=== PATIENT | female | born 1950 | race Caucasian/White ===

== ENCOUNTER 2018-05-01 18:13 | Emergency (ER) | payer OTHER ==
[2018-05-01] MEDS ORDERED: NA CHLORIDE 0.9% 1,000 ML ONE (20:00)
[2018-05-01] MEDS ORDERED: DIPHENHYDRAMINE 50 MG/ML VIAL ONE (20:00)
--- NOTE | 2018-05-01 20:42 | ER ---
Nurse's Notes [facility] Name: Kaylee Urias Age: 67 yrs Sex: Female : 1950 Arrival Date: 05/01/2018 Time: 18:16 Bed 28 Private MD: Edin Baker B Diagnosis: ALLERGIC REACTION TO NATUROPATHIC MEDICATION Presentation: 05/01 18:17 Presenting complaint: Patient states: i have endometrial cancer and been getting sub q hj shots of Helixor Viscosan and today im supposed to get 0.1 dose and mistakenly i got 1.0, now i have tingling and numbness, lips and tongue; denies SOB; denies headache, denies racing heart rate; administered meds 30 mins [employer];. Transition of care: patient was not received from another setting of care. Onset: The symptoms/episode began/occurred acutely. Anaphylaxis evaluation, no signs or symptoms of anaphylaxis were noted. Onset of symptoms was May 01, 2018. Risk Assessment: Do you want to hurt yourself or someone else? Patient reports no desire to harm self or others. Initial Sepsis Screen: Does the patient meet any 2 criteria? No. Patient's initial sepsis screen is negative. Does the patient have a suspected source of infection? No. Patient's initial sepsis screen is negative. Care prior to arrival: None. 18:17 Method Of Arrival: Ambulatory 18:17 Acuity: RITCHIE 3 hj Triage Assessment: 18:24 General: Appears in no apparent distress. uncomfortable, Behavior is calm, cooperative, hj appropriate for age. Pain: Denies pain. Historical: - Allergies: 18:24 [place] And Derivatives; hj 18:24 cranberry; hj 18:24 dairy products; hj 18:24 Gluten Protein; hj 18:24 Mustard; hj 18:24 Nuts; hj - Home Meds: 18:24 holixar viscosan [Active]; hj - PMHx: 18:24 celiac; hj - PSHx: 18:24 Tonsillectomy; hj - Immunization history:: Adult Immunizations up to date. - Social history:: Smoking status: Patient/guardian denies using tobacco, Patient/guardian denies using alcohol. - Ebola Screening: : Patient negative for fever greater than or equal to 101.5 degrees Fahrenheit, and additional compatible Ebola Virus Disease symptoms Patient denies exposure to infectious person Patient denies travel to an Ebola-affected area in the 21 days before illness onset. - Family history:: not pertinent. - Hospitalizations: : No recent hospitalization is reported. - History obtained from: friend. Screenin:24 Abuse screen: Denies threats or abuse. Denies injuries from another. Nutritional hj screening: No deficits noted. Tuberculosis screening: No symptoms or risk factors identified. Fall Risk None identified. Assessment: 18:24 Respiratory: Airway is patent Respiratory effort is even, unlabored, Respiratory hj pattern is regular, symmetrical, Breath sounds are clear. 19:37 General: Appears in no apparent distress. comfortable, slender, well groomed, well tl3 developed, well nourished, Behavior is calm, cooperative, appropriate for age. General: pt reports that she felt like she was having an allergic reaction to an injection that her gave her. It is prescribed by her oncologist in [place], it is [place], she is supposed to get 0.01 ml and instead got 0 .1 m IM . Pain: Denies pain. Neuro: Level of Consciousness is awake, alert, obeys commands, Oriented to person, place, time, situation, Appropriate for age. Cardiovascular: Heart tones S1 S2 present Patient's skin is warm and dry. Respiratory: Airway is patent Respiratory effort is even, unlabored, Respiratory pattern is regular, symmetrical, Breath sounds are clear bilaterally. GI: No signs and/or symptoms were reported involving the gastrointestinal system. : No signs and/or symptoms were reported regarding the genitourinary system. EENT: No signs and/or symptoms were reported regarding the EENT system. Derm: No signs and/or symptoms reported regarding the dermatologic system. Musculoskeletal: No signs and/or symptoms reported regarding the musculoskeletal system. 20:27 Reassessment: No changes from previously documented assessment. Patient and/or family tl3 updated on plan of care and expected duration. Pain level reassessed. Patient is alert, oriented x 3, equal unlabored respirations, skin warm/dry/pink. 21:18 Reassessment: Patient appears in no apparent distress at this time. No changes from tl3 previously documented assessment. Patient and/or family updated on plan of care and expected duration. Pain level reassessed. Patient is alert, oriented x 3, equal unlabored respirations, skin warm/dry/pink. Vital Signs: 18:25 BP 146 / 78; Pulse 80; Resp 18; Temp 98.5(TE); Pulse Ox 100% on R/A; Weight 49.9 kg; hj Height 5 ft. 5 in. (165.10 cm); Pain 0/10; 19:37 BP 140 / 74; Pulse 80; Resp 18; Pulse Ox 100% ; tl3 20:27 BP 152 / 74; Pulse 69; Resp 18; Pulse Ox 100% on R/A; tl3 21:18 BP 147 / 67; Pulse 65; Resp 18; Pulse Ox 100% ; tl3 18:25 Body Mass Index 18.31 (49.90 kg, 165.10 cm) hj ED Course: 18:16 Patient arrived in ED. do 18:16 Edin Baker MD is Private Physician. do 18:23 Triage completed. hj 18:24 Arm band placed on right wrist. hj 18:25 Patient has correct armband on for positive identification. Placed in gown. Bed in low hj position. Call light in reach. Side rails up X 1. 18:50 Kaylee Cody FNP is PHCP. kav 18:50 Harpal Duarte MD is Attending Physician. kav 19:15 Adilene John, TIP is Primary Nurse. tl3 19:20 No provider procedures requiring assistance completed. Patient did not have IV access tl3 during this emergency room visit. 20:00 Inserted saline lock: 20 gauge in left antecubital area, using aseptic technique. tl3 20:41 Edin Baker MD is Referral Physician. kav 21:18 IV discontinued, intact, bleeding controlled, No redness/swelling at site. Pressure tl3 dressing applied. Administered Medications: 20:25 Drug: Pepcid 20 mg Route: IVP; Infused Over: 3 mins; Site: left antecubital; tl3 20:27 Follow up: Response: No adverse reaction tl3 20:25 Drug: Benadryl 25 mg Route: IVP; Infused Over: 3 mins; Site: left antecubital; tl3 20:27 Follow up: Response: No adverse reaction tl3 20:26 Drug: NS 0.9% 1000 ml Route: IV; Rate: 1 bolus; Site: left antecubital; Delivery: tl3 Primary tubing; 21:21 Follow up: IV Status: Completed infusion; IV Intake: 1000ml tl3 Intake: 21:21 IV: 1000ml; Total: 1000ml. tl3 Outcome: 20:42 Discharge ordered by MD. merchant 21:18 Discharged to home ambulatory. tl3 21:18 Condition: stable 21:18 Discharge instructions given to patient, Instructed on discharge instructions, follow up and referral plans. Demonstrated understanding of instructions, follow-up care. 21:21 Patient left the ED. tl3 Signatures: Kaylee Cody FNP FNP kav Joaquin, Henry RN RN Naida Wills Tammy, RN RN tl3 Corrections: (The following items were deleted from the chart) 18:27 18:25 Pulse 80bpm; Resp 18bpm; Pulse Ox 100% RA; Temp 98.5F Temporal; 49.9 kg; Height 5 hj ft. 5 in.; BMI: 18.3; Pain 0/10; hj
--- NOTE | 2018-05-01 20:42 | EDPHYS ---
Physician Documentation [facility] Name: Kaylee Urias Age: 67 yrs Sex: Female : 1950 Arrival Date: 05/01/2018 Time: 18:16 Bed 28 Private MD: Edin Baker B ED Physician Harpal Duarte HPI: 05/01 19:30 This 67 yrs old Female presents to ER via Ambulatory with complaints of kav Allergic Reaction. 19:30 The patient presents with itching. Onset: The symptoms/episode began/occurred acutely, kav just prior to arrival. 19:30 Associated signs and symptoms: Pertinent positives: The patient has no apparent kav associated signs or symptoms. headache, Pertinent negatives: Altered mental status fever. Possible causes: Naturopathic Mistletoe injection. 19:33 At home the patient or guardian has treated the symptoms with nothing. Severity of kav symptoms: At their worst the symptoms were mild just prior to arrival. The patient has not experienced similar symptoms in the past. The patient has been recently seen by a physician: naturopathic oncologist. patient reports pmhx: endometrial cancer. she has completed radiation for the endometrial cancer. she was recently seen by her naturopathic oncologist who recommended abdominal mistletoe injections. her friend, who has been assisting with the injections, reports that he accidently injection 1 mg instead of recommended dose of 0.1 mg. patient reports that her lips were tingling and itching but that the "...symptoms have begun to subside". there is no erythema at injection site area.. Historical: - Allergies: 18:24 [place] And Derivatives; hj 18:24 cranberry; hj 18:24 dairy products; hj 18:24 Gluten Protein; hj 18:24 Mustard; hj 18:24 Nuts; hj - Home Meds: 18:24 holixar viscosan [Active]; hj - PMHx: 18:24 celiac; hj - PSHx: 18:24 Tonsillectomy; hj - Immunization history:: Adult Immunizations up to date. - Social history:: Smoking status: Patient/guardian denies using tobacco, Patient/guardian denies using alcohol. - Ebola Screening: : Patient negative for fever greater than or equal to 101.5 degrees Fahrenheit, and additional compatible Ebola Virus Disease symptoms Patient denies exposure to infectious person Patient denies travel to an Ebola-affected area in the 21 days before illness onset. - Family history:: not pertinent. - Hospitalizations: : No recent hospitalization is reported. - History obtained from: friend. ROS: 19:40 Constitutional: Negative for fever, chills, and weight loss, Eyes: Negative for injury, kav pain, redness, and discharge, ENT: Negative for injury, pain, and discharge, Neck: Negative for injury, pain, and swelling, Cardiovascular: Negative for chest pain, palpitations, and edema, Respiratory: Negative for shortness of breath, cough, wheezing, and pleuritic chest pain, Abdomen/GI: Negative for abdominal pain, nausea, vomiting, diarrhea, and constipation, Back: Negative for injury and pain, : Negative for injury, bleeding, discharge, and swelling, MS/Extremity: Negative for injury and deformity, Neuro: Negative for headache, weakness, numbness, tingling, and seizure, Psych: Negative for depression, anxiety, suicide ideation, homicidal ideation, and hallucinations, Allergy/Immunology: Negative for hives, rash, and allergies, Endocrine: Negative for neck swelling, polydipsia, polyuria, polyphagia, and marked weight changes, Hematologic/Lymphatic: Negative for swollen nodes, abnormal bleeding, and unusual bruising. 19:40 Skin: Negative for swelling, acute changes. Exam: 19:40 Constitutional: This is a well developed, well nourished patient who is awake, alert, kav and in no acute distress. Head/Face: Normocephalic, atraumatic. Eyes: Pupils equal round and reactive to light, extra-ocular motions intact. Lids and lashes normal. Conjunctiva and sclera are non-icteric and not injected. Cornea within normal limits. Periorbital areas with no swelling, redness, or edema. ENT: Nares patent. No nasal discharge, no septal abnormalities noted. Tympanic membranes are normal and external auditory canals are clear. Oropharynx with no redness, swelling, or masses, exudates, or evidence of obstruction, uvula midline. Mucous membranes moist. Neck: Trachea midline, no thyromegaly or masses palpated, and no cervical lymphadenopathy. Supple, full range of motion without nuchal rigidity, or vertebral point tenderness. No Meningismus. Chest/axilla: Normal chest wall appearance and motion. Nontender with no deformity. No lesions are appreciated. Cardiovascular: Regular rate and rhythm with a normal S1 and S2. No gallops, murmurs, or rubs. Normal PMI, no JVD. No pulse deficits. Respiratory: Lungs have equal breath sounds bilaterally, clear to auscultation and percussion. No rales, rhonchi or wheezes noted. No increased work of breathing, no retractions or nasal flaring. Abdomen/GI: Soft, non-tender, with normal bowel sounds. No distension or tympany. No guarding or rebound. No evidence of tenderness throughout. Back: No spinal tenderness. No costovertebral tenderness. Full range of motion. Skin: Warm, dry with normal turgor. Normal color with no rashes, no lesions, and no evidence of cellulitis. MS/ Extremity: Pulses equal, no cyanosis. Neurovascular intact. Full, normal range of motion. Neuro: Awake and alert, GCS 15, oriented to person, place, time, and situation. Cranial nerves II-XII grossly intact. Motor strength 5/5 in all extremities. Sensory grossly intact. Cerebellar exam normal. Normal gait. Psych: Awake, alert, with orientation to person, place and time. Behavior, mood, and affect are within normal limits. Vital Signs: 18:25 BP 146 / 78; Pulse 80; Resp 18; Temp 98.5(TE); Pulse Ox 100% on R/A; Weight 49.9 kg; hj Height 5 ft. 5 in. (165.10 cm); Pain 0/10; 19:37 BP 140 / 74; Pulse 80; Resp 18; Pulse Ox 100% ; tl3 20:27 BP 152 / 74; Pulse 69; Resp 18; Pulse Ox 100% on R/A; tl3 21:18 BP 147 / 67; Pulse 65; Resp 18; Pulse Ox 100% ; tl3 18:25 Body Mass Index 18.31 (49.90 kg, 165.10 cm) hj MDM: 18:50 Medical screening is not applicable. kav 19:40 Data reviewed: vital signs, nurses notes. kav Administered Medications: 20:25 Drug: Pepcid 20 mg Route: IVP; Infused Over: 3 mins; Site: left antecubital; tl3 20:27 Follow up: Response: No adverse reaction tl3 20:25 Drug: Benadryl 25 mg Route: IVP; Infused Over: 3 mins; Site: left antecubital; tl3 20:27 Follow up: Response: No adverse reaction tl3 20:26 Drug: NS 0.9% 1000 ml Route: IV; Rate: 1 bolus; Site: left antecubital; Delivery: tl3 Primary tubing; 21:21 Follow up: IV Status: Completed infusion; IV Intake: 1000ml tl3 Disposition: 05/02 07:10 Co-signature as Attending Physician, Harpal Duarte MD. rn Disposition: 05/01/18 20:42 Discharged to Home. Impression: ALLERGIC REACTION TO NATUROPATHIC MEDICATION. - Condition is Stable. - Discharge Instructions: Drug Allergy, [id number]. - Medication Reconciliation Form, Thank You Letter form. - Follow up: Edin Baker MD; When: 5 - 6 days; Reason: Recheck today's complaints, Continuance of care, Re-evaluation by your physician. - Problem is new. - Symptoms have improved. Signatures: Kaylee Cody, COMMISSIONED SALES ASSOCIATE COMMISSIONED SALES ASSOCIATE Harpal Alicia MD MD rn Joaquin, Henry, RN RN hj Lowrey, Tammy, RN RN tl3 Corrections: (The following items were deleted from the chart) 05/01 21:21 20:42 05/01/2018 20:42 Discharged to Home. Impression: ALLERGIC REACTION TO tl3 NATUROPATHIC MEDICATION. Condition is Stable. Forms are Medication Reconciliation Form, Thank You Letter, Antibiotic Education, Prescription Opioid Use. Follow up: Edin Baker; When: 5 - 6 days; Reason: Recheck today's complaints, Continuance of care, Re-evaluation by your physician. Problem is new. Symptoms have improved. shonda
== END 2018-05-01 21:21 | disposition home or self-care (01) ==
LOC: ER 18:13
DX: L29.8 Other pruritus (principal); Z88.8 Allergy status to other drugs, medicaments and biological substances; Z91.011 Allergy to milk products; Z91.018 Allergy to other foods
CPT/HCPCS: 96361; 96374; 96375; 99283; J7030

== ENCOUNTER 2019-02-09 05:53 | Emergency (ER) | payer OTHER ==
[2019-02-09] MEDS ORDERED: HYDROCODONE/APAP 10/325 TAB ONE (06:48)
--- NOTE | 2019-02-09 08:12 | ER ---
Nurse's Notes [facility] Name: Kaylee Urias Age: 68 yrs Sex: Female : 1950 Arrival Date: 02/09/2019 Time: 05:54 Bed 8 Private MD: Diagnosis: Pain in right wrist;Pain in right elbow;Pain in right shoulder Presentation: 02/09 06:14 Presenting complaint: Patient states: right wrist pain s/p fall from sitting yesterday. ak1 Transition of care: patient was not received from another setting of care. Onset of symptoms was February 08, 2019. Risk Assessment: Do you want to hurt yourself or someone else? Patient reports no desire to harm self or others. Initial Sepsis Screen: Does the patient meet any 2 criteria? No. Patient's initial sepsis screen is negative. Does the patient have a suspected source of infection? No. Patient's initial sepsis screen is negative. Care prior to arrival: None. 06:14 Method Of Arrival: Wheelchair ak1 06:14 Acuity: RITCHIE 4 ak1 Triage Assessment: 06:19 General: Appears uncomfortable, Behavior is calm, cooperative. Pain: Complains of pain ak1 in right wrist. EENT: No signs and/or symptoms were reported regarding the EENT system. Neuro: No deficits noted. Cardiovascular: No deficits noted. Respiratory: No deficits noted. GI: No signs and/or symptoms were reported involving the gastrointestinal system. : No signs and/or symptoms were reported regarding the genitourinary system. Derm: No signs and/or symptoms reported regarding the dermatologic system. 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 Historical: - Allergies: 06:19 [place] And Derivatives; ak1 06:19 Nuts; ak1 06:19 Mustard; ak1 06:19 Gluten Protein; ak1 06:19 dairy products; ak1 06:19 cranberry; ak1 06:19 Sulfa (Sulfonamide Antibiotics); ak1 - Home Meds: 06:19 None [Active]; ak1 - PMHx: 06:19 celiac; ovarian cancer; tumor on spine; ak1 - PSHx: 06:19 Hysterectomy; ak1 - Immunization history:: Adult Immunizations unknown. - Social history:: Smoking status: Patient/guardian denies using tobacco. - Ebola Screening: : No symptoms or risks identified at this time. Screenin:22 Abuse screen: Denies threats or abuse. Denies injuries from another. Nutritional ak1 screening: No deficits noted. Tuberculosis screening: No symptoms or risk factors identified. Fall Risk Gait- Impaired (20 pts.). Assessment: 06:23 Reassessment: see triage assessment. ak1 06:46 Reassessment: ice applied to pt right wrist. bb 07:00 Reassessment: pt requesting pain medication for muscle spasm in right leg, ERP ak1 notified. no new order given. 07:48 Reassessment: Patient appears in no apparent distress at this time. Patient and/or ph family updated on plan of care and expected duration. Pain level reassessed. Patient is alert, oriented x 3, equal unlabored respirations, skin warm/dry/pink. Pt resting quietly, awaiting radiology results. 08:35 Reassessment: Patient appears in no apparent distress at this time. Patient and/or ph family updated on plan of care and expected duration. Pain level reassessed. Patient is alert, oriented x 3, equal unlabored respirations, skin warm/dry/pink. splint and sling placed to R arm, pt to be d/c home, waiting for to return. Vital Signs: 06:19 BP 173 / 88; Pulse 75; Resp 18; Temp 98.2; Pulse Ox 100% on R/A; Weight 47.63 kg (R); ak1 Height 5 ft. 5 in. (165.10 cm) (R); Pain 8/10; 08:36 BP 158 / 76; Pulse 70; Resp 22; Temp 98.0; Pulse Ox 100% on R/A; Pain 5/10; ph 06:19 Body Mass Index 17.47 (47.63 kg, 165.10 cm) ak1 ED Course: 05:54 Patient arrived in ED. ds1 06:03 Dayday Real NP is PHCP. pm1 06:03 Genaro Galindo MD is Attending Physician. pm1 06:08 Nelida Velásquez, RN is Primary Nurse. ak1 06:18 Triage completed. ak1 06:19 Arm band placed on Patient placed in an exam room, on a stretcher, on pulse oximetry, ak1 Patient notified of wait time. 06:22 Patient has correct armband on for positive identification. Bed in low position. Call ak1 light in reach. Side rails up X 1. Adult w/ patient. Pulse ox on. NIBP on. 07:07 X-ray completed. Portable x-ray completed in exam room. Patient tolerated procedure kw poorly. 07:09 Hand Right 3 View XRAY In Process Unspecified. EDMS 07:09 Elbow Right 3 View XRAY In Process Unspecified. EDMS 07:09 Shoulder Right (2 View) XRAY In Process Unspecified. EDMS 07:49 No provider procedures requiring assistance completed. ph 08:11 Jone Joseph MD is Referral Physician. pm1 08:37 Patient did not have IV access during this emergency room visit. ph Administered Medications: 06:45 Drug: [place] 10 mg-325 mg 1 tabs Route: PO; bb 08:38 Follow up: Response: No adverse reaction ph Outcome: 08:12 Discharge ordered by MD. pm1 09:37 Patient left the ED. ph Signatures: Dispatcher [employer] [facility] Katherin Mccurdy ds1 Tequila Lozada, RN RN bb Soniya Montero Amber, RN RN ak1 Mayda Muñoz RN RN ph Dayday Real, BRE TIRE BUSTER pm1
--- NOTE | 2019-02-09 08:13 | EDPHYS ---
Physician Documentation [facility] Name: Kaylee Urias Age: 68 yrs Sex: Female : 1950 Arrival Date: 02/09/2019 Time: 05:54 Bed 8 Private MD: ED Physician Genaro Galindo HPI: 02/09 06:55 This 68 yrs old Female presents to ER via Wheelchair with complaints of R Arm pm1 Pain. 06:55 The patient or guardian complains of pain, that is acute. The complaints affect the pm1 right arm. Context: The problem was sustained at home, resulted from a fall, from a seated position. Onset: The symptoms/episode began/occurred yesterday. Treatment prior to arrival includes: no previous treatment. Modifying factors: The symptoms are alleviated by remaining still, the symptoms are aggravated by movement. Associated signs and symptoms: Pertinent negatives: deformity, fever, headache, head injury, neck pain, LOC. Severity of symptoms: in the emergency department the symptoms are unchanged. The patient has not experienced similar symptoms in the past. Patient fell from chair while trying to get up and believes she landed with right arm out to brace fall. Did not hit her head. 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 - Social history:: Smoking status: Patient/guardian denies using tobacco. - Ebola Screening: : No symptoms or risks identified at this time. ROS: 06:55 Constitutional: Negative for fever, chills, and weight loss, Eyes: Negative for injury, pm1 pain, redness, and discharge, ENT: Negative for injury, pain, and discharge, Neck: Negative for injury, pain, and swelling, Cardiovascular: Negative for chest pain, palpitations, and edema, Respiratory: Negative for shortness of breath, cough, wheezing, and pleuritic chest pain, Abdomen/GI: Negative for abdominal pain, nausea, vomiting, diarrhea, and constipation, Back: Negative for injury and pain, : Negative for injury, bleeding, discharge, and swelling. 06:55 Skin: Negative for injury, rash, and discoloration, Neuro: Negative for headache, weakness, numbness, tingling, and seizure. 06:55 MS/extremity: Positive for pain, of the right arm, Negative for deformity. Exam: 06:55 Constitutional: This is a well developed, well nourished patient who is awake, alert, pm1 and in no acute distress. Head/Face: Normocephalic, atraumatic. Eyes: Pupils equal round and reactive to light, extra-ocular motions intact. Lids and lashes normal. Conjunctiva and sclera are non-icteric and not injected. Cornea within normal limits. Periorbital areas with no swelling, redness, or edema. ENT: Nares patent. No nasal discharge, no septal abnormalities noted. Tympanic membranes are normal and external auditory canals are clear. Oropharynx with no redness, swelling, or masses, exudates, or evidence of obstruction, uvula midline. Mucous membranes moist. Neck: Trachea midline, no thyromegaly or masses palpated, and no cervical lymphadenopathy. Supple, full range of motion without nuchal rigidity, or vertebral point tenderness. No Meningismus. Chest/axilla: Normal chest wall appearance and motion. Nontender with no deformity. No lesions are appreciated. Cardiovascular: Regular rate and rhythm with a normal S1 and S2. No gallops, murmurs, or rubs. Normal PMI, no JVD. No pulse deficits. Respiratory: Lungs have equal breath sounds bilaterally, clear to auscultation and percussion. No rales, rhonchi or wheezes noted. No increased work of breathing, no retractions or nasal flaring. Abdomen/GI: Soft, non-tender, with normal bowel sounds. No distension or tympany. No guarding or rebound. No evidence of tenderness throughout. Back: No spinal tenderness. No costovertebral tenderness. Full range of motion. Skin: Warm, dry with normal turgor. Normal color with no rashes, no lesions, and no evidence of cellulitis. 06:55 Musculoskeletal/extremity: Extremities: grossly normal except: noted in the anterior aspect of right shoulder, right antecubital area and right wrist: tenderness. 06:55 Neuro: Orientation: is normal, Motor: moves all fours, Sensation: is normal, no obvious gross deficits. Vital Signs: 06:19 BP 173 / 88; Pulse 75; Resp 18; Temp 98.2; Pulse Ox 100% on R/A; Weight 47.63 kg (R); ak1 Height 5 ft. 5 in. (165.10 cm) (R); Pain 8/10; 08:36 BP 158 / 76; Pulse 70; Resp 22; Temp 98.0; Pulse Ox 100% on R/A; Pain 5/10; ph 06:19 Body Mass Index 17.47 (47.63 kg, 165.10 cm) ak1 Procedures: 08:50 Splinting: Splint applied to right wrist using Orthoglass splint, applied by tech. pm1 Examined by me, post splint application: neurovascular intact, 2+ distal pulses palpable, brisk capillary refill noted, Patient tolerated well. MDM: 06:21 Patient medically screened. pm1 07:00 Data reviewed: vital signs. Data interpreted: Pulse oximetry: on room air is 100 %. pm1 Interpretation: normal. 08:10 Counseling: I had a detailed discussion with the patient and/or guardian regarding: the pm1 historical points, exam findings, and any diagnostic results supporting the discharge/admit diagnosis, radiology results, the need for outpatient follow up, to return to the emergency department if symptoms worsen or persist or if there are any questions or concerns that arise at home. 02/09 06:22 Order name: Hand Right 3 View XRAY pm1 02/09 06:22 Order name: Elbow Right 3 View XRAY pm1 02/09 06:22 Order name: Shoulder Right (2 View) XRAY pm1 02/09 08:10 Order name: Sling; Complete Time: 08:38 pm1 02/09 08:23 Order name: Splint - Sugar Tong - Forearm; Complete Time: 08:38 pm1 Administered Medications: 06:45 Drug: Cougar 10 mg-325 mg 1 tabs Route: PO; bb 08:38 Follow up: Response: No adverse reaction ph Disposition: 02/10 06:52 Co-signature as Attending Physician, Genaro Galindo MD I agree with the assessment and tw4 plan of care. Disposition: 02/09/19 08:12 Discharged to Home. Impression: Pain in right wrist, Pain in right elbow, Pain in right shoulder. - Condition is Stable. - Discharge Instructions: Joint Pain, Musculoskeletal Pain, Shoulder Pain, Wrist Pain, Wrist Splint, How to Use a Sling. - Prescriptions for Tylenol- Codeine #3 300-30 mg Oral Tablet - take 2 tablets by ORAL route every 6 hours As needed; 20 tablet. - Medication Reconciliation Form, Thank You Letter, Antibiotic Education, Prescription Opioid Use form. - Follow up: Emergency Department; When: As needed; Reason: Worsening of condition. Follow up: Jone Joseph MD; When: 2 - 3 days; Reason: Recheck today's complaints, Continuance of care, Re-evaluation by your physician. - Problem is new. - Symptoms have improved. Signatures: Dispatcher [employer] EDMS Tequila Lozada RN RN Nelida Velásquez RN RN ak1 Mayda Muñoz RN RN Dayday Real, DIRECTOR TRANSITION DIRECTOR TRANSITION pm1 Genaro Galindo MD MD tw4 Corrections: (The following items were deleted from the chart) 02/09 08:23 08:10 Splint - Wrist ordered. pm1 pm1 09:37 08:12 02/09/2019 08:12 Discharged to Home. Impression: Pain in right wrist; Pain in ph right elbow; Pain in right shoulder. Condition is Stable. Forms are Medication Reconciliation Form, Thank You Letter, Antibiotic Education, Prescription Opioid Use. Follow up: Emergency Department; When: As needed; Reason: Worsening of condition. Follow up: Dr. Jone Joseph; When: 2 - 3 days; Reason: Recheck today's complaints, Continuance of care, Re-evaluation by your physician. Problem is new. Symptoms have improved. pm1
--- NOTE | 2019-02-09 12:29 | RAD REPORT ---
EXAM DESCRIPTION: RAD - Shoulder Right 2 View - 02/09/2019 7:08 am CLINICAL HISTORY: PAIN Fall, pain COMPARISON: No comparisons FINDINGS: AC joint and glenohumeral joint arthritic changes are present. No acute fracture or disloc ation seen.
--- NOTE | 2019-02-09 12:29 | RAD REPORT ---
EXAM DESCRIPTION: RAD - Elbow Right 3 View - 02/09/2019 7:08 am CLINICAL HISTORY: PAIN Fall, pain COMPARISON: No comparisons FINDINGS: Submitted images are in non standard anatomic position, limiting assessment. Within this l imitation, no acute fracture seen.
--- NOTE | 2019-02-09 12:32 | RAD REPORT ---
EXAM DESCRIPTION: RAD - Hand Right 3 View - 02/09/2019 7:08 am CLINICAL HISTORY: PAIN Trauma, pain COMPARISON: No comparisons FINDINGS: Soft tissue swelling is seen about the wrist. Prominent degenerative changes are noted. No acute fracture or dislocation seen.
== END 2019-02-09 09:37 | disposition home or self-care (01) ==
LOC: ER 05:53
DX: M25.531 Pain in right wrist (principal); M25.521 Pain in right elbow; M25.511 Pain in right shoulder; Z88.2 Allergy status to sulfonamides; Z85.43 Personal history of malignant neoplasm of ovary; Z91.011 Allergy to milk products; Z91.018 Allergy to other foods
CPT/HCPCS: 99283

== ENCOUNTER 2020-04-27 13:25 | Emergency (ER) | payer OTHER ==
[2020-04-27] MEDS ORDERED: NA CHLORIDE 0.9% 1,000 ML ONE (14:20)
[2020-04-27 14:43] LABS: Absolute Lymphocytes (CBC) 0.9 K/uL (0.7-4.9); Basophils % 0.8 % (0-1.3); Hematocrit 32.2 % (36.0-45.0); Lymphocytes % 12.8 % (15.3-44.8); MPV 8.8 fL (7.6-11.3); RBC Red Blood Cell Count 3.47 M/uL (3.86-4.86)
[2020-04-27 14:47] LABS: Protime INR 1.02
[2020-04-27 14:54] LABS: Albumin 3.2 g/dL (3.4-5.0); Bilirubin Total 0.3 mg/dL (0.2-1.0); Potassium 4.5 mmol/L (3.5-5.1); Protein, Total 7.7 g/dL (6.4-8.2)
[2020-04-27 15:00] LABS: Urine Blood 2+ (NEG); Urine Glucose NEGATIVE (NEG); Urine Protein 2+ (NEG); Urine Specific Gravity 1.015 (1.005-1.030); Urine pH 5.5 (5.0-7.0)
--- NOTE | 2020-04-27 15:40 | RAD REPORT ---
EXAM DESCRIPTION: USExtrem Venous W Compress Bil04/27/2020 3:25 pm CLINICAL HISTORY: Leg pain COMPARISON: none FINDINGS: The common femoral, superficial femoral, popliteal and posterior tibial veins bilaterally are compressible and demonstrate augmentation. Doppler demonstrates good flow. IMPRESSION: No evidence of deep venous thrombosis involving either lower extremity.
[2020-04-27] MEDS ORDERED: CEFTRIAXONE/SWI 1gm 1 GM/10 ML SYR ONE (15:47)
[2020-04-27] MEDS ORDERED: ONDANSETRON 4 MG/2 ML VIAL ONE (17:31)
[2020-04-27] MEDS ORDERED: MORPHINE 4 MG/ML SYR ONE (17:32)
--- NOTE | 2020-04-27 18:40 | RAD REPORT ---
EXAM DESCRIPTION: MRI - Thoracic Spine Wo Contr - 04/27/2020 5:59 pm CLINICAL HISTORY: Leg numbness COMPARISON: None. TECHNIQUE: Sagittal T1 weighted, T2 weighted and T2 STIR weighted sequences were obtained. Axial T2 weighted images were obtained through each disc level. FINDINGS: No significant bulging disc. No disc herniation Central spinal stenosis is not present. Neural foramina are patent Spinal cord is normal caliber and signal. Area of increased signal within the T12 vertebral body on T1 weighted sequences consistent with a hem angioma. IMPRESSION: No significant abnormalities displayed
--- NOTE | 2020-04-27 18:42 | RAD REPORT ---
EXAM DESCRIPTION: MRI - Lumbar Spine Wo Con - 04/27/2020 6:21 pm CLINICAL HISTORY: Numbness COMPARISON: 2019 x-ray TECHNIQUE: Sagittal T1, T2 and STIR weighted sequences were obtained. Axial T1 and T2 sequences were obtained through the lumbar disc levels. FINDINGS: Mild spondylosis L1-2 and L2-3 Disc bulge, ligamentum flavum and facet hypertrophy L3-4 resulting narrowing of the thecal sac is 8.5 millimeters. Minimal narrowing of the neural foramina bilaterally Disc bulge, ligamentum flavum facet hypertrophy L4-5 narrow the thecal sac is 7.5 millimeters. Mild n arrowing of the neural foramina bilaterally L5-S1 unremarkable No significant abnormal signal within the bones Mild right hydronephrosis IMPRESSION: Spondylosis L3-4 resulting in mild central spinal stenosis Spondylosis L4-5 resulting mild to moderate central spinal stenosis Mild right hydronephrosis
--- NOTE | 2020-04-27 19:01 | ER ---
Nurse's Notes [facility] Name: Kaylee Urias Age: 69 yrs Sex: Female : 1950 Arrival Date: 04/27/2020 Time: 13:27 Bed 24 Private MD: Diagnosis: Edema, unspecified;Unspecified kidney failure;Urinary tract infection, site not specified;Low back pain Presentation: 04/27 13:53 Chief complaint: Patient states: R foot, ankle and lower leg swelling. Pt has hx of ks7 cancer in leg, leg numb from knee down to foot. pt able to ambulate with a cane and walker. Coronavirus screen: Client denies travel out of the [place] in the last 14 days. At this time, the client does not indicate any symptoms associated with coronavirus-19. The client reports previous COVID testing was negative. Date of collection: April 24, 2020. Ebola Screen: Patient negative for fever greater than or equal to 101.5 degrees Fahrenheit, and additional compatible Ebola Virus Disease symptoms Patient denies exposure to infectious person. Patient denies travel to an Ebola-affected area in the 21 days before illness onset. Initial Sepsis Screen: Does the patient meet any 2 criteria? No. Patient's initial sepsis screen is negative. Does the patient have a suspected source of infection? No. Patient's initial sepsis screen is negative. Risk Assessment: Do you want to hurt yourself or someone else? Patient reports no desire to harm self or others. Onset of symptoms was April 24, 2020. 13:53 Method Of Arrival: Wheelchair ks 13:53 Acuity: RITCHIE 3 ks7 Triage Assessment: 13:59 General: Appears in no apparent distress. Behavior is cooperative, anxious. Pain: ks7 Complains of pain in right leg Pain currently is 5 out of 10 on a pain scale. Quality of pain is described as pressure, Pain began 2-3 days ago. Is continuous. : Reports incontinence, since week. urinary. Derm:. Musculoskeletal: Reports. Musculoskeletal: Reports swelling to R foot, ankle lower leg. posterior tibial pulse 2+ R ankle. cap refil < 3 sec. Historical: - Allergies: 13:59 Sulfa (Sulfonamide Antibiotics); ks7 13:59 [place] And Derivatives; ks7 13:59 dairy products; ks7 13:59 Gluten Protein; ks7 13:59 Nuts; ks7 13:59 cranberry; ks7 13:59 Mustard; ks7 - PMHx: 13:59 celiac; ovarian cancer; Tumor on Spine; ks7 - Immunization history:: Adult Immunizations up to date. - Social history:: Smoking status: Patient denies any tobacco usage or history of. - Family history:: not pertinent. Screenin:04 Abuse screen: Denies threats or abuse. Denies injuries from another. Nutritional ks7 screening: No deficits noted. Tuberculosis screening: No symptoms or risk factors identified. Fall Risk No fall in past 12 months (0 pts). Secondary diagnosis (15 points) IV access (20 points). Ambulatory Aid- Crutches/Cane/Walker (15 pts). Gait- Normal/Bed Rest/Wheelchair (0 pts) Mental Status- Oriented to own ability (0 pts). Total [place] Fall Scale indicates Low Risk Score (25-44 pts). Side Rails Up X 2 Placed close to Nursing Station Frequent Obs/Assesments occuring As available Patient and Family Educated on Fall Prevention Program and strategies. Assessment: 14:04 General: Appears in no apparent distress. uncomfortable, Behavior is cooperative, ks7 anxious, swelling to R foot ankle and lower leg, urinary incontinence . 15:17 Reassessment: Patient is alert, oriented x 3, equal unlabored respirations, skin ks7 warm/dry/pink. 18:24 Reassessment: pt has not returned from MRI. ks7 18:34 Reassessment: Pt's Cancer MD: Dr. Stewart in [facility] requesting pt file/results from ks7 today faxed to his office: Dr. Stewart . Vital Signs: 13:53 BP 155 / 69; Pulse 72; Resp 18; Temp 98.3(O); Pulse Ox 100% on R/A; Pain 5/10; ks7 14:26 BP 152 / 62; Pulse 75; Resp 16; Pulse Ox 100% on R/A; Pain 5/10; ks7 15:16 BP 140 / 87; Pulse 77; Resp 16; Pulse Ox 100% on R/A; Pain 5/10; ks7 15:45 BP 161 / 69; Pulse 75; Resp 18; Pulse Ox 100% on R/A; Pain 0/10; ks7 16:16 BP 152 / 81; Pulse 76; Resp 18; Pulse Ox 100% on R/A; Pain 0/10; ks7 19:00 BP 120 / 72; Pulse 70; Resp 18; Temp 98.5(O); Pulse Ox 100% on R/A; Pain 0/10; ks7 19:11 Pulse Ox 100% ; Pain 0/10; ks7 19:11 Pulse Ox 100% ; Pain 0/10; ks7 13:53 pt feels pain above knee, no sensation below knee ks7 ED Course: 13:27 Patient arrived in ED. ds1 13:43 Rebekah Ramirez, TIP is Primary Nurse. ks7 13:45 Long Valdivia MD is Attending Physician. mauri 13:59 Triage completed. ks7 13:59 Arm band placed on right wrist. ks7 14:04 Patient has correct armband on for positive identification. Bed in low position. Call ks7 light in reach. Side rails up X2. 14:04 No provider procedures requiring assistance completed. ks7 14:26 Ptt, Activated Sent. ks7 14:26 PT-INR Sent. ks7 14:26 Comprehensive Metabolic Panel Sent. ks7 14:26 CBC with Diff Sent. ks7 14:27 Inserted saline lock: 20 gauge in left antecubital area, using aseptic technique. Blood ks7 collected. 14:48 Resting quietly. transferred pt from bed to commode and back in bed. pt able to stand ks7 on 1 leg and pivot. 14:48 Urine Culture Sent. ks7 15:26 US Extremity Venous W Compression Cesar In Process Unspecified. EDMS 15:35 Resting quietly. pulled pt up and repositioned in bed with measurement operator. ks7 16:38 Patient moved to MRI via wheelchair. ks7 17:26 Patient moved to MRI via wheelchair. ks7 17:27 Thoracic Spine Wo Contr Sent. ks7 17:59 MRI Lumbar Spine wo Con In Process Unspecified. EDMS 17:59 Thoracic Spine Wo Contr In Process Unspecified. EDMS 18:29 Patient moved back from MRI. ks7 19:01 Storm Kay MD is Referral Physician. mauri 19:11 IV discontinued, intact, bleeding controlled, No redness/swelling at site. Pressure ks7 dressing applied. Administered Medications: Discontinued: Rocephin 1 grams IV at per protocol once; Given slow IV push per pharmacy instructions 14:26 Drug: NS 0.9% 1000 ml Route: IV; Rate: 125 ml/hr; Site: left antecubital; ks7 15:41 Drug: Rocephin 1 grams Route: IV; Rate: per protocol; Site: left antecubital; ks7 17:25 Drug: Zofran (Ondansetron) 4 mg Route: IVP; Site: left antecubital; ks7 19:11 Follow up: Pulse Ox 100% ; Pain 0/10 Adult ks7 17:26 Drug: morphine 4 mg Route: IVP; Site: left antecubital; ks7 19:11 Follow up: Pulse Ox 100% ; Pain 0/10 Adult ks7 Outcome: 19:01 Discharge ordered by MD. dotson 19:21 Discharged to home via wheelchair. ks7 19:21 Condition: good 19:21 Discharge instructions given to patient, Instructed on discharge instructions, follow up and referral plans. Demonstrated understanding of instructions, follow-up care, medications, Prescriptions given X 1. 19:31 Patient left the ED. ks7 Signatures: Dispatcher [employer] Long Santos MD MD cha Sanford, Demi ds1 Rebekah Ramirez, RN RN ks7
--- NOTE | 2020-04-27 19:02 | EDPHYS ---
Physician Documentation [facility] Name: Kaylee Urias Age: 69 yrs Sex: Female : 1950 Arrival Date: 04/27/2020 Time: 13:27 Bed 24 Private MD: Long Sidhu HPI: 04/27 14:15 This 69 yrs old Female presents to ER via Wheelchair with complaints of Leg mauri Swelling. 14:15 The patient presents with decreased range of motion, pain, swelling, tenderness. The mauri complaints affect the lateral aspect of right thigh, lateral aspect of right knee, lateral aspect of right calf, right hamstring, posterior aspect of right knee, right calf, medial aspect of right thigh, medial aspect of right knee, medial aspect of right calf, right ankle, right quadriceps, right knee and right ingram. Context: The problem was sustained at an unknown site. Onset: The symptoms/episode began/occurred today. Modifying factors: The symptoms are alleviated by nothing. the symptoms are aggravated by movement. Associated signs and symptoms: Pertinent positives: calf tenderness, pain in lumbar back and inability to control bladder. The patient presents with pain that is acute, with no known mechanism of injury. The symptoms are located in the low back. Onset: The symptoms/episode began/occurred 2 day(s) ago. The pain does not radiate. Associated signs and symptoms: Pertinent positives: dysuria, bladder incontinence. 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 - Social history:: Smoking status: Patient denies any tobacco usage or history of. - Family history:: not pertinent. ROS: 14:15 Constitutional: Negative for fever, chills, and weight loss, Eyes: Negative for injury, mauri pain, redness, and discharge, ENT: Negative for injury, pain, and discharge, Neck: Negative for injury, pain, and swelling, Cardiovascular: Negative for chest pain, palpitations, and edema, Respiratory: Negative for shortness of breath, cough, wheezing, and pleuritic chest pain, Abdomen/GI: Negative for abdominal pain, nausea, vomiting, diarrhea, and constipation, Back: Negative for injury and pain, : Negative for injury, bleeding, discharge, and swelling, Skin: Negative for injury, rash, and discoloration, Neuro: Negative for headache, weakness, numbness, tingling, and seizure, Psych: Negative for depression, anxiety, suicide ideation, homicidal ideation, and hallucinations, Allergy/Immunology: Negative for hives, rash, and allergies, Endocrine: Negative for neck swelling, polydipsia, polyuria, polyphagia, and marked weight changes, Hematologic/Lymphatic: Negative for swollen nodes, abnormal bleeding, and unusual bruising. 14:15 MS/extremity: Positive for decreased range of motion, pain, swelling, tenderness, of the right leg. Exam: 14:15 Constitutional: This is a well developed, well nourished patient who is awake, alert, mauri and in no acute distress. Head/Face: Normocephalic, atraumatic. Eyes: Pupils equal round and reactive to light, extra-ocular motions intact. Lids and lashes normal. Conjunctiva and sclera are non-icteric and not injected. Cornea within normal limits. Periorbital areas with no swelling, redness, or edema. ENT: Nares patent. No nasal discharge, no septal abnormalities noted. Tympanic membranes are normal and external auditory canals are clear. Oropharynx with no redness, swelling, or masses, exudates, or evidence of obstruction, uvula midline. Mucous membranes moist. Neck: Trachea midline, no thyromegaly or masses palpated, and no cervical lymphadenopathy. Supple, full range of motion without nuchal rigidity, or vertebral point tenderness. No Meningismus. Chest/axilla: Normal chest wall appearance and motion. Nontender with no deformity. No lesions are appreciated. Cardiovascular: Regular rate and rhythm with a normal S1 and S2. No gallops, murmurs, or rubs. Normal PMI, no JVD. No pulse deficits. Respiratory: Lungs have equal breath sounds bilaterally, clear to auscultation and percussion. No rales, rhonchi or wheezes noted. No increased work of breathing, no retractions or nasal flaring. Abdomen/GI: Soft, non-tender, with normal bowel sounds. No distension or tympany. No guarding or rebound. No evidence of tenderness throughout. Female : Normal external genitalia. Skin: Warm, dry with normal turgor. Normal color with no rashes, no lesions, and no evidence of cellulitis. Neuro: Awake and alert, GCS 15, oriented to person, place, time, and situation. Cranial nerves II-XII grossly intact. Motor strength 5/5 in all extremities. Sensory grossly intact. Cerebellar exam normal. Normal gait. Psych: Awake, alert, with orientation to person, place and time. Behavior, mood, and affect are within normal limits. 14:15 Back: ROM is painful, normal spinal alignment noted, CVA tenderness, is absent, vertebral tenderness, is appreciated at L1, L2 and L3, muscle spasm, is not present. 14:15 Skin: cellulitis, is not appreciated, induration, is not appreciated, injury, is not appreciated, lesion(s), are not present, no rash present. Vital Signs: 13:53 BP 155 / 69; Pulse 72; Resp 18; Temp 98.3(O); Pulse Ox 100% on R/A; Pain 5/10; ks7 14:26 BP 152 / 62; Pulse 75; Resp 16; Pulse Ox 100% on R/A; Pain 5/10; ks7 15:16 BP 140 / 87; Pulse 77; Resp 16; Pulse Ox 100% on R/A; Pain 5/10; ks7 15:45 BP 161 / 69; Pulse 75; Resp 18; Pulse Ox 100% on R/A; Pain 0/10; ks7 16:16 BP 152 / 81; Pulse 76; Resp 18; Pulse Ox 100% on R/A; Pain 0/10; ks7 19:00 BP 120 / 72; Pulse 70; Resp 18; Temp 98.5(O); Pulse Ox 100% on R/A; Pain 0/10; ks7 19:11 Pulse Ox 100% ; Pain 0/10; ks7 19:11 Pulse Ox 100% ; Pain 0/10; ks7 13:53 pt feels pain above knee, no sensation below knee ks7 MDM: 13:45 Patient medically screened. [facility] 14:21 Data reviewed: vital signs, nurses notes, lab test result(s), EKG, radiologic studies, mauri doppler, MRI. Data interpreted: [employer]: rate is 72 beats/min, rhythm is regular, Pulse oximetry: on room air is 100 %. Counseling: I had a detailed discussion with the patient and/or guardian regarding: the historical points, exam findings, and any diagnostic results supporting the discharge/admit diagnosis, lab results, radiology results. 04/27 14:07 Order name: CBC with Diff; Complete Time: 15:08 [facility] 04/27 14:07 Order name: Comprehensive Metabolic Panel; Complete Time: 15:08 [facility] 04/27 14:07 Order name: PT-INR; Complete Time: 15:08 [facility] 04/27 14:07 Order name: Ptt, Activated; Complete Time: 15:08 [facility] 04/27 14:07 Order name: Urine Culture [facility] 04/27 14:50 Order name: Urine Dipstick--Ancillary (enter results); Complete Time: 15:08 04/27 14:07 Order name: US Extremity Venous W Compression Cesar; Complete Time: 16:18 [facility] 04/27 14:07 Order name: MRI Lumbar Spine wo Con; Complete Time: 18:47 [facility] 04/27 14:07 Order name: Urine Dipstick-Ancillary (obtain specimen); Complete Time: 14:48 [facility] 04/27 16:32 Order name: Thoracic Spine Wo Contr; Complete Time: 18:47 EDMS Administered Medications: Discontinued: Rocephin 1 grams IV at per protocol once; Given slow IV push per pharmacy instructions 14:26 Drug: NS 0.9% 1000 ml Route: IV; Rate: 125 ml/hr; Site: left antecubital; ks7 15:41 Drug: Rocephin 1 grams Route: IV; Rate: per protocol; Site: left antecubital; ks7 17:25 Drug: Zofran (Ondansetron) 4 mg Route: IVP; Site: left antecubital; ks7 19:11 Follow up: Pulse Ox 100% ; Pain 0/10 Adult ks7 17:26 Drug: morphine 4 mg Route: IVP; Site: left antecubital; ks7 19:11 Follow up: Pulse Ox 100% ; Pain 0/10 Adult ks7 Disposition: 04/27/20 19:01 Discharged to Home. Impression: Edema, unspecified, Unspecified kidney failure, Urinary tract infection, site not specified, Low back pain. - Condition is Stable. - Discharge Instructions: Back Pain, Adult, Edema, Musculoskeletal Pain, Urinary Tract Infection, Adult, Urinary Tract Infection, Adult, Kykq-wo-Bsah, Lymphedema, Back Pain, Adult, Ldua-ec-Iibd, Edema, Lpwr-wn-Xesw. - Prescriptions for Cipro 250 mg Oral Tablet - take 1 tablet by ORAL route every 12 hours; 14 tablet. - Medication Reconciliation Form, Thank You Letter, Antibiotic Education, Prescription Opioid Use form. - Follow up: Private Physician; When: 2 - 3 days; Reason: Recheck today's complaints, Continuance of care, Re-evaluation by your physician. Follow up: Storm Kay; When: 2 - 3 days; Reason: Recheck today's complaints, Continuance of care, Re-evaluation by your physician. - Problem is new. - Symptoms have improved. Signatures: Dispatcher [employer] EDLong Taylor MD MD cha Songcuan, Kathleen RN RN ks7 Corrections: (The following items were deleted from the chart) 19:31 19:01 04/27/2020 19:01 Discharged to Home. Impression: Edema, unspecified; Unspecified ks7 kidney failure; Urinary tract infection, site not specified; Low back pain. Condition is Stable. Discharge Instructions: Back Pain, Adult, Musculoskeletal Pain, Urinary Tract Infection, Adult, Urinary Tract Infection, Adult, Mlbq-xb-Kggc, Back Pain, Adult, Huck-oe-Ahen. Prescriptions for Cipro 250 mg Oral Tablet - take 1 tablet by ORAL route every 12 hours; 14 tablet. and Forms are Medication Reconciliation Form, Thank You Letter, Antibiotic Education, Prescription Opioid Use. Follow up: Private Physician; When: 2 - 3 days; Reason: Recheck today's complaints, Continuance of care, Re-evaluation by your physician. Follow up: Storm Kay; When: 2 - 3 days; Reason: Recheck today's complaints, Continuance of care, Re-evaluation by your physician. Problem is new. Symptoms have improved. mauri
[2020-04-27 19:49] VITALS: O2SAT 100
[2020-04-27 19:59] VITALS: BP 120/72; TEMP 98.5
== END 2020-04-27 19:31 | disposition home or self-care (01) ==
LOC: ER 13:25
DX: N19 Unspecified kidney failure (principal); N39.0 Urinary tract infection, site not specified; M54.5 Low back pain; Z88.2 Allergy status to sulfonamides; Z91.011 Allergy to milk products; Z91.018 Allergy to other foods
CPT/HCPCS: 87088; 85025; 87086; 36415; 85610; 85730; 81003; 80053; 93970; 72146; 72148; J0696; J7030; J2405; 96374; 96375; 99284

== ENCOUNTER 2020-11-05 04:21 | Emergency (ER) | payer OTHER ==
[2020-11-05] MEDS ORDERED: ONDANSETRON 4 MG/2 ML VIAL ONE (04:43)
[2020-11-05] MEDS ORDERED: NA CHLORIDE 0.9% 1,000 ML ONE (04:43)
[2020-11-05 04:49] LABS: Absolute Lymphocytes (CBC) 1.4 K/uL (0.7-4.9); Basophils % 0.8 % (0-1.3); Hematocrit 27.6 % (36.0-45.0); Lymphocytes % 13.8 % (15.3-44.8); MPV 7.9 fL (7.6-11.3); RBC Red Blood Cell Count 2.95 M/uL (3.86-4.86)
[2020-11-05] MEDS ORDERED: MORPHINE 4 MG/ML SYR ONE (05:02)
[2020-11-05 05:09] LABS: Urine Blood 3+ (NEG); Urine Glucose NEGATIVE (NEG); Urine pH 6.5 (5.0-7.0)
[2020-11-05 05:10] LABS: Urine Protein 3+ (NEG)
[2020-11-05 05:17] LABS: Protime INR 0.99
[2020-11-05 05:18] LABS: ALT/SGPT 47 U/L (12-78); AST/SGOT 48 U/L (15-37); Albumin 1.9 g/dL (3.4-5.0); Alkaline Phosphatase 141 U/L (45-117); BUN Blood Urea Nitrogen 12 mg/dL (7-18); Bicarbonate 20 mmol/L (21-32); Bilirubin Direct < 0.1 mg/dL (0-0.2); Bilirubin Total 0.1 mg/dL (0.2-1.0); Glucose Level 89 mg/dL (74-106); Lipase 63 U/L (73-393); Potassium 3.4 mmol/L (3.5-5.1); Sodium Level 148 mmol/L (136-145)
[2020-11-05] MEDS ORDERED: HYDROMORPHONE HCL 1 MG/ML INJ ONE (05:31)
[2020-11-05 05:33] LABS: Troponin (Emerg Dept Use Only) 0.04 ng/mL (0.0-0.045)
[2020-11-05] MEDS ORDERED: PIPER/TAZO/NS 3.375gm 3.375 GM/100 ML BAG ONE (05:39)
--- NOTE | 2020-11-05 05:48 | ER ---
Nurse's Notes [facility] Name: Kaylee Urias Age: 70 yrs Sex: Female : 1950 Arrival Date: 11/05/2020 Time: 04:22 Bed 18 Private MD: Diagnosis: Abdominal tenderness-UTERINE CANCER;Hypokalemia;Urinary tract infection, site not specified;Anemia, unspecified;Acute gastric ulcer with perforation Presentation: 11/05 04:22 Chief complaint: EMS states: she has abdominal pain and vomiting this morning. history mg2 of brain tumor and uterine ca and on chemo at [facility]. Coronavirus screen: Client denies travel out of the [place] in the last 14 days. Ebola Screen: No symptoms or risks identified at this time. Initial Sepsis Screen: Does the patient meet any 2 criteria? No. Patient's initial sepsis screen is negative. Does the patient have a suspected source of infection? No. Patient's initial sepsis screen is negative. Risk Assessment: Do you want to hurt yourself or someone else? Patient reports no desire to harm self or others. Onset of symptoms was November 05, 2020. 04:22 Method Of Arrival: EMS: [facility] mg2 04:22 Acuity: RITCHIE 3 mg2 Historical: - Allergies: 04:25 [place] And Derivatives; mg2 04:25 cranberry; mg2 04:25 dairy products; mg2 04:25 Gluten Protein; mg2 04:25 Mustard; mg2 04:25 Nuts; mg2 04:25 Sulfa (Sulfonamide Antibiotics); mg2 - Home Meds: 05:38 Keppra 500 mg Oral tab 1 tab 2 times per day [Active]; gabapentin 300 mg oral cap 1 cap em 3 times per day [Active]; atorvastatin 40 mg oral tab 1 tab once daily [Active]; aspirin 81 mg Oral chew 1 tab once daily [Active]; Vitamin C Oral [Active]; Iron CR Oral [Active]; vit D3-folic acid-vit B2-B6-B12 oral oral [Active]; womens multivitamin [Active]; - PMHx: 04:25 celiac; ovarian cancer; 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 - Social history:: Smoking status: Patient denies any tobacco usage or history of. Patient uses alcohol, Patient/guardian denies using street drugs, IV drugs. - Family history:: not pertinent. Screenin:54 Abuse screen: Denies threats or abuse. Denies injuries from another. Nutritional mg2 screening: No deficits noted. Tuberculosis screening: No symptoms or risk factors identified. Fall Risk IV access (20 points). Assessment: 04:53 General: Appears uncomfortable, Behavior is cooperative. Pain: Complains of pain in mg2 abdomen. Pain:. Neuro: Level of Consciousness is awake, alert, obeys commands, Oriented to person, place, time, situation. Cardiovascular: Capillary refill < 3 seconds Patient's skin is warm and dry. Respiratory: Airway is patent Respiratory effort is even, unlabored, Respiratory pattern is regular, symmetrical. GI: Abdomen is flat, non-distended, Reports lower abdominal pain, upper abdominal pain, nausea, vomiting, since today. EENT: No signs and/or symptoms were reported regarding the EENT system. Derm: Skin is intact, is healthy with good turgor, Skin is pink, warm \T\ dry. normal. Musculoskeletal: Circulation, motion, and sensation intact. Capillary refill < 3 seconds. 05:33 Reassessment: patient sent to CT scan via stretcher. em 06:17 Reassessment: report given to TIP Pablo OF ED Triage of [facility]. patient signed mg2 the consent for transfer. 07:32 Reassessment: Patient appears in no apparent distress at this time. Patient and/or ph family updated on plan of care and expected duration. Pain level reassessed. Pt resting quietly w/ stable vitals, [facility] at bedside, report given to EMT-P, pt transferred to MD Valdivia for further treatment. Vital Signs: 04:22 BP 175 / 86; Pulse 87; Resp 18; Temp 98.7; Pulse Ox 100% on R/A; Weight 52.16 kg; mg2 Height 5 ft. 5 in. (165.10 cm); Pain 10/10; 06:06 BP 175 / 68; Pulse 114; Resp 18; Pulse Ox 98% on R/A; mg2 06:51 BP 168 / 68; Pulse 116; Resp 18; Pulse Ox 97% on R/A; mg2 07:33 BP 152 / 70; Pulse 113; Resp 18; Temp 98.4; Pulse Ox 98% on R/A; ph 04:22 Body Mass Index 19.14 (52.16 kg, 165.10 cm) mg2 ED Course: 04:22 Patient arrived in ED. mg2 04:24 Triage completed. mg2 04:24 Arm band placed on. mg2 04:30 Inserted saline lock: 22 gauge in left upper arm, using aseptic technique. em 04:30 Maintain EMS IV. Dressing intact. Site clean \T\ dry. Gauge \T\ site: 20 \T\LAC. em 04:43 Luis Hernandez RN is Primary Nurse. mg2 04:44 Long Valdivia MD is Attending Physician. mauri 04:54 No provider procedures requiring assistance completed. mg2 05:02 XRAY Chest (1 view) In Process Unspecified. EDMS 05:35 Patient has correct armband on for positive identification. environmental monitoring technician on. Pulse em ox on. NIBP on. Door closed. Warm blanket given. 05:35 Dr. Valdivia initiated transfer with Marcy Bhatt at [facility]. While on the phone tt3 initiating, Dr. Valdivia was connected with Dr. Thapa for consultation. 05:40 COVID swab sent to lab. em 05:50 Marcy Bhatt called to give admin approval. Dr. Thapa is the accepting physician. tt3 The pt is going to [facility] ([facility]). Nurse to call report to [phone]. 05:54 Abdomen In Process Unspecified. EDMS 07:33 Patient transferred, IV remains in place. ph Administered Medications: Discontinued: NS 0.9% 1000 ml IV at 125 ml/hr continuous 04:44 Drug: Zofran (Ondansetron) 4 mg Route: IVP; Site: left antecubital; mg2 06:30 Follow up: Response: No adverse reaction mg2 04:52 Drug: NS 0.9% 1000 ml Route: IV; Rate: 125 ml/hr; Site: left upper arm; mg2 04:52 Drug: morphine 4 mg Route: IVP; Site: left upper arm; mg2 05:49 Follow up: Response: No adverse reaction mg2 05:18 Drug: Zosyn 3.375 grams Route: IVPB; Infused Over: 60 mins; Site: left upper arm; em 07:32 Follow up: Response: No adverse reaction; IV Status: Completed infusion ph 05:20 Drug: Dilaudid 1 mg Route: IVP; Site: left upper arm; em 05:49 Follow up: Response: No adverse reaction mg2 05:20 Drug: Pepcid 20 mg Route: IVP; Site: left upper arm; em 05:49 Follow up: Response: No adverse reaction mg2 05:20 CANCELLED (Duplicate Order): Dilaudid 1 mg IVP once; RASS on ADMIN: Combtv4, Very em Agttd3, Agttd2, Rstlss1, AlertClm0, Drwsy-1, Lt Sdtn-2, Mod Sdtn-3, Dp Sdtn-4, UnArsble-5 05:48 Drug: NS 0.9% 1000 ml Route: IV; Rate: 1 bolus; Site: left forearm; mg2 07:31 Follow up: Response: No adverse reaction; IV Status: Completed infusion; IV Intake: ph 1000ml 06:01 Drug: D5-1/2 NS with KCl 20 mEq/L 1000 ml Route: IV; Rate: 100 ml/hr; Site: left upper mg2 arm; 07:31 Follow up: Response: No adverse reaction; IV Status: Infusion continued upon transfer ph 06:48 Drug: Flagyl 500 mg Volume: 100 ml; Route: IVPB; Rate: 200 ml/hr; Infused Over: 30 mg2 mins; Site: left upper arm; 07:20 Follow up: Response: No adverse reaction; IV Status: Completed infusion ph 06:48 Drug: ProTONIX 40 mg Route: IVP; Site: left upper arm; mg2 07:30 Follow up: Response: No adverse reaction ph Intake: 07:31 IV: 1000ml; Total: 1000ml. ph Outcome: 05:47 ER care complete, transfer ordered by MD. dotson 07:33 Transferred by ground EMS [facility]. to [facility], Transfer form ph completed. X-rays sent w/ patient. 07:33 Condition: stable 07:33 Instructed on the need for transfer. 07:34 Patient left the ED. ph Addendum: 11/13/2020 07:49 Addendum: Culture Results: Positive urine culture. faxed patient urine culture report e b to the [facility] where they will make sure the provider gets it. Signatures: Dispatcher [employer] Long Santos MD MD cha Munoz, Edgar RN Mayda Michaels RN RN Allison Elizabeth Michele, RN RN mg2 Trim, Samir tt3 Corrections: (The following items were deleted from the chart) 11/05 05:59 05:35 Dr. Valdivia initiated transfer with Nay Bhatt at [facility]. tt3 tt3 06:01 05:35 Dr. Valdivia initiated transfer with Marcy Bhatt at [facility]. tt3 tt3 06:18 06:17 Reassessment: report given to TIP Pablo OF ED Triage of [facility] mg2 mg2
--- NOTE | 2020-11-05 05:48 | EDPHYS ---
Physician Documentation [facility] Name: Kaylee Urias Age: 70 yrs Sex: Female : 1950 Arrival Date: 11/05/2020 Time: 04:22 Bed 18 Private MD: DORA Physician Long Valdivia HPI: 11/05 05:09 This 70 yrs old Female presents to ER via EMS with complaints of ABDOMINAL mauri PAIN. 05:09 The patient presents with abdominal pain in the upper abdomen, in the lower abdomen. mauri Onset: The symptoms/episode began/occurred just prior to arrival, this morning. The patient presents with flank pain, on the right, RIGHT nephrostomy tube. Onset: The symptoms/episode began/occurred this morning, today. Modifying factors: The symptoms are alleviated by nothing, remaining still, the symptoms are aggravated by movement, pressure. Associated signs and symptoms: The patient has no apparent associated signs or symptoms. Severity of symptoms: At their worst the symptoms were severe, in the emergency department the symptoms have improved, mildly. Associated signs and symptoms: Pertinent positives: nausea. Historical: - Allergies: 04:25 [place] And Derivatives; mg2 04:25 cranberry; mg2 04:25 dairy products; mg2 04:25 Gluten Protein; mg2 04:25 Mustard; mg2 04:25 Nuts; mg2 04:25 Sulfa (Sulfonamide Antibiotics); mg2 - Home Meds: 05:38 Keppra 500 mg Oral tab 1 tab 2 times per day [Active]; gabapentin 300 mg oral cap 1 cap em 3 times per day [Active]; atorvastatin 40 mg oral tab 1 tab once daily [Active]; aspirin 81 mg Oral chew 1 tab once daily [Active]; Vitamin C Oral [Active]; Iron CR Oral [Active]; vit D3-folic acid-vit B2-B6-B12 oral oral [Active]; womens multivitamin [Active]; - PMHx: 04:25 celiac; ovarian cancer; 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 - Social history:: Smoking status: Patient denies any tobacco usage or history of. Patient uses alcohol, Patient/guardian denies using street drugs, IV drugs. - Family history:: not pertinent. ROS: 05:09 Constitutional: Negative for fever, chills, and weight loss, Eyes: Negative for injury, mauri pain, redness, and discharge, ENT: Negative for injury, pain, and discharge, Neck: Negative for injury, pain, and swelling, Cardiovascular: Negative for chest pain, palpitations, and edema, Respiratory: Negative for shortness of breath, cough, wheezing, and pleuritic chest pain, Back: Negative for injury and pain, MS/Extremity: Negative for injury and deformity, Skin: Negative for injury, rash, and discoloration, Neuro: Negative for headache, weakness, numbness, tingling, and seizure, Psych: Negative for depression, anxiety, suicide ideation, homicidal ideation, and hallucinations, Allergy/Immunology: Negative for hives, rash, and allergies, Endocrine: Negative for neck swelling, polydipsia, polyuria, polyphagia, and marked weight changes, Hematologic/Lymphatic: Negative for swollen nodes, abnormal bleeding, and unusual bruising. 05:09 Abdomen/GI: Positive for abdominal pain, nausea, of the epigastric area, right upper quadrant, left upper quadrant, right lower quadrant and left lower quadrant. 05:09 Skin: Positive for pallor. Exam: 05:09 Constitutional: This is a well developed, well nourished patient who is awake, alert, mauri and in no acute distress. Head/Face: Normocephalic, atraumatic. Eyes: Pupils equal round and reactive to light, extra-ocular motions intact. Lids and lashes normal. Conjunctiva and sclera are non-icteric and not injected. Cornea within normal limits. Periorbital areas with no swelling, redness, or edema. ENT: Nares patent. No nasal discharge, no septal abnormalities noted. Tympanic membranes are normal and external auditory canals are clear. Oropharynx with no redness, swelling, or masses, exudates, or evidence of obstruction, uvula midline. Mucous membranes moist. Neck: Trachea midline, no thyromegaly or masses palpated, and no cervical lymphadenopathy. Supple, full range of motion without nuchal rigidity, or vertebral point tenderness. No Meningismus. Chest/axilla: Normal chest wall appearance and motion. Nontender with no deformity. No lesions are appreciated. Cardiovascular: Regular rate and rhythm with a normal S1 and S2. No gallops, murmurs, or rubs. Normal PMI, no JVD. No pulse deficits. Respiratory: Lungs have equal breath sounds bilaterally, clear to auscultation and percussion. No rales, rhonchi or wheezes noted. No increased work of breathing, no retractions or nasal flaring. Back: No spinal tenderness. No costovertebral tenderness. Full range of motion. Female : Normal external genitalia. MS/ Extremity: Pulses equal, no cyanosis. Neurovascular intact. Full, normal range of motion. Neuro: Awake and alert, GCS 15, oriented to person, place, time, and situation. Cranial nerves II-XII grossly intact. Motor strength 5/5 in all extremities. Sensory grossly intact. Cerebellar exam normal. Normal gait. Psych: Awake, alert, with orientation to person, place and time. Behavior, mood, and affect are within normal limits. 05:09 Abdomen/GI: Inspection: abdomen appears normal, Bowel sounds: active, Palpation: moderate abdominal tenderness, in all quadrants, Liver: no appreciated palpable abnormalities, Hernia: not appreciated. 05:09 Musculoskeletal/extremity: ROM: intact in all extremities, full active range of motion, full passive range of motion, Circulation is intact in all extremities. Sensation intact. Compartment Syndrome exam of affected extremity: is normal. no pain, no numbness, no tingling, no sensation deficit, no palor, no weak pulses, DVT Exam: no pain, no tenderness, negative Homans' sign noted on exam, no appreciated bluish discoloration, no erythema, no increased warmth, swelling. 05:14 ECG was reviewed by the Attending Physician. mauri Vital Signs: 04:22 BP 175 / 86; Pulse 87; Resp 18; Temp 98.7; Pulse Ox 100% on R/A; Weight 52.16 kg; mg2 Height 5 ft. 5 in. (165.10 cm); Pain 10/10; 06:06 BP 175 / 68; Pulse 114; Resp 18; Pulse Ox 98% on R/A; mg2 06:51 BP 168 / 68; Pulse 116; Resp 18; Pulse Ox 97% on R/A; mg2 07:33 BP 152 / 70; Pulse 113; Resp 18; Temp 98.4; Pulse Ox 98% on R/A; ph 04:22 Body Mass Index 19.14 (52.16 kg, 165.10 cm) mg2 MDM: 04:44 Patient medically screened. mauri 05:12 Differential diagnosis: kidney stone, nonspecific abdominal pain, urinary tract mauri infection, bowel obstruction, cholecystitis, Cholelithiasis, diverticulitis, gastritis, non-specific abd pain, pancreatitis. Data reviewed: vital signs, nurses notes, lab test result(s), EKG, radiologic studies, CT scan, plain films. Data interpreted: compliance monitor: rate is 87 beats/min, rhythm is regular, Pulse oximetry: on room air is 100 %. Test interpretation: by ED physician or midlevel provider: ECG, plain radiologic studies. Counseling: I had a detailed discussion with the patient and/or guardian regarding: the historical points, exam findings, and any diagnostic results supporting the discharge/admit diagnosis, lab results, radiology results, the need to transfer to another facility, for higher level of care, [facility] does not immediately have the required specialist. 06:40 Physician consultation: Charles Camara MD and will see patient in ED, after a [facility] discussion of the case, a recommendation for transfer for higher level of care is made. 11/05 04:26 Order name: Basic Metabolic Panel; Complete Time: 05:40 mg2 11/05 04:26 Order name: CBC with Diff; Complete Time: 05:16 mg2 11/05 04:26 Order name: Hepatic Function; Complete Time: 05:40 mg2 11/05 04:26 Order name: Lipase; Complete Time: 05:40 mg2 11/05 04:46 Order name: Magnesium; Complete Time: 05:40 mauri 11/05 04:46 Order name: NT PRO-BNP; Complete Time: 05:40 mauri 11/05 04:46 Order name: PT-INR; Complete Time: 05:40 [facility] 11/05 04:46 Order name: Troponin (emerg Dept Use Only); Complete Time: 05:40 mauri 11/05 04:46 Order name: XRAY Chest (1 view) [facility] 11/05 04:46 Order name: Urine Culture [facility] 11/05 05:08 Order name: Urine Dipstick--Ancillary (enter results); Complete Time: 05:16 tt3 11/05 05:41 Order name: Lactate; Complete Time: 06:30 mauri 11/05 06:19 Order name: SARS-COV-2 RT PCR; Complete Time: 06:30 EDMS 11/05 04:26 Order name: IV Saline Lock; Complete Time: 04:44 mg2 11/05 04:26 Order name: Labs collected and sent; Complete Time: 04:44 mg2 11/05 04:46 Order name: EKG; Complete Time: 04:47 mauri 11/05 05:39 Order name: Abdomen EDMS 11/05 04:46 Order name: Cardiac monitoring; Complete Time: 04:53 mauri 11/05 04:46 Order name: EKG - Nurse/Tech; Complete Time: 04:53 mauri 11/05 04:46 Order name: O2 Per Protocol; Complete Time: 04:53 mauri 11/05 04:46 Order name: O2 Sat Monitoring; Complete Time: 04:53 mauri 11/05 04:46 Order name: Urine Dipstick-Ancillary (obtain specimen); Complete Time: 05:07 mauri 11/05 06:29 Order name: IV Saline Lock - Large Bore; Complete Time: 06:29 mauri 11/05 06:32 Order name: NPO; Complete Time: 06:39 mauri EC:14 Rate is 88 beats/min. Rhythm is regular. QRS [place] is Normal. HI interval is normal. QRS mauri interval is normal. QT interval is normal. No Q waves. T waves are Normal. No ST changes noted. Clinical impression: Normal ECG and No evidence of ischemia. Interpreted by me. Reviewed by me. Administered Medications: Discontinued: NS 0.9% 1000 ml IV at 125 ml/hr continuous 04:44 Drug: Zofran (Ondansetron) 4 mg Route: IVP; Site: left antecubital; mg2 06:30 Follow up: Response: No adverse reaction mg2 04:52 Drug: NS 0.9% 1000 ml Route: IV; Rate: 125 ml/hr; Site: left upper arm; mg2 04:52 Drug: morphine 4 mg Route: IVP; Site: left upper arm; mg2 05:49 Follow up: Response: No adverse reaction mg2 05:18 Drug: Zosyn 3.375 grams Route: IVPB; Infused Over: 60 mins; Site: left upper arm; em 07:32 Follow up: Response: No adverse reaction; IV Status: Completed infusion ph 05:20 Drug: Dilaudid 1 mg Route: IVP; Site: left upper arm; em 05:49 Follow up: Response: No adverse reaction mg2 05:20 Drug: Pepcid 20 mg Route: IVP; Site: left upper arm; em 05:49 Follow up: Response: No adverse reaction mg2 05:20 CANCELLED (Duplicate Order): Dilaudid 1 mg IVP once; RASS on ADMIN: Combtv4, Very em Agttd3, Agttd2, Rstlss1, AlertClm0, Drwsy-1, Lt Sdtn-2, Mod Sdtn-3, Dp Sdtn-4, UnArsble-5 05:48 Drug: NS 0.9% 1000 ml Route: IV; Rate: 1 bolus; Site: left forearm; mg2 07:31 Follow up: Response: No adverse reaction; IV Status: Completed infusion; IV Intake: ph 1000ml 06:01 Drug: D5-1/2 NS with KCl 20 mEq/L 1000 ml Route: IV; Rate: 100 ml/hr; Site: left upper mg2 arm; 07:31 Follow up: Response: No adverse reaction; IV Status: Infusion continued upon transfer ph 06:48 Drug: Flagyl 500 mg Volume: 100 ml; Route: IVPB; Rate: 200 ml/hr; Infused Over: 30 mg2 mins; Site: left upper arm; 07:20 Follow up: Response: No adverse reaction; IV Status: Completed infusion ph 06:48 Drug: ProTONIX 40 mg Route: IVP; Site: left upper arm; mg2 07:30 Follow up: Response: No adverse reaction ph Disposition: 11/05/20 05:47 Transfer ordered to Other Acute Care Facility. Diagnosis are Abdominal tenderness - UTERINE CANCER, Hypokalemia, Urinary tract infection, site not specified, Anemia, unspecified, Acute gastric ulcer with perforation. - Reason for transfer: Higher level of care. - Accepting physician is to [facility]. - Condition is Fair. - Problem is new. - Symptoms have improved. Signatures: Dispatcher [employer] Long Santos MD MD cha Munoz, Edgar, RN RN em Mayda Muñoz RN RN Luis Hernandez RN RN mg2 Corrections: (The following items were deleted from the chart) 05:20 05:19 Dilaudid 1 mg IVP once; RASS on ADMIN: Combtv4, Very Agttd3, Agttd2, Rstlss1, em AlertClm0, Drwsy-1, Lt Sdtn-2, Mod Sdtn-3, Dp Sdtn-4, UnArsble-5 ordered. em 05:39 04:47 Abdomen Pelvis W Con+CT.RAD.BRZ ordered. EDMS EDMS 05:39 05:19 CORONAVIRUS+MR.LAB.BRZ ordered. EDID EDMS 06:32 05:47 11/05/2020 05:47 Transfer ordered to Other Acute Care Facility. Diagnosis is mauri Abdominal tenderness - UTERINE CANCER; Hypokalemia; Urinary tract infection, site not specified; Anemia, unspecified. Reason for transfer: Higher level of care. Accepting physician is to [facility]. Condition is Fair. Problem is new. Symptoms have improved. mauri 07:34 06:32 11/05/2020 05:47 Transfer ordered to Other Acute Care Facility. Diagnosis is ph Abdominal tenderness - UTERINE CANCER; Hypokalemia; Urinary tract infection, site not specified; Anemia, unspecified; Acute gastric ulcer with perforation. Reason for transfer: Higher level of care. Accepting physician is to [facility]. Condition is Fair. Problem is new. Symptoms have improved. mauri
[2020-11-05] MEDS ORDERED: KCL 20 MEQ/100 mL IVPB 0 MEQ/0 ML BAG IV ONE (06:16)
[2020-11-05] MEDS ORDERED: D5 0.45 NS 0 ML IV ONE (06:16)
[2020-11-05] MEDS ORDERED: D5.45NS W/KCL 20MEQ 1,000 ML IV ONE (06:16)
[2020-11-05] MEDS ORDERED: METRONIDAZOLE 500mg IVPB 500 MG/100 ML BAG IV ONE (06:57)
[2020-11-05] MEDS ORDERED: PANTOPRAZOLE 40 MG INJ ONE (06:57)
[2020-11-05 07:43] VITALS: BP 152/70; TEMP 98.4; O2SAT 98
--- NOTE | 2020-11-05 08:12 | RAD REPORT ---
EXAM DESCRIPTION: Lucio Single View11/05/2020 5:02 am CLINICAL HISTORY: Cough COMPARISON: none FINDINGS: A nipple shadow overlies the left lung base. The lungs appear clear of acute infiltrate. The heart is borderline enlarged IMPRESSION: No acute abnormalities displayed
--- NOTE | 2020-11-05 08:28 | RAD REPORT ---
EXAM DESCRIPTION: CT - Abdomen Pelvis Wo Contrast - 11/05/2020 7:00 am ADDENDUM #1 THIS REPORT CONTAINS FINDINGS THAT MAY BE CRITICAL TO PATIENT CARE: The findings were verbally discu ssed via telephone conference with Dr. Long Valdiiva by Dr. Сергей Madsen on 11/05/2020 6:11 AM T .The results were acknowledged and understood. Electronically signed by: Dolores Madsen MD 11/05/2020 6:11 AM [facility] End of Addendum EXAM DESCRIPTION: CT Abdomen and Pelvis Without Intravenous Contrast CLINICAL HISTORY: The patient is 70 years old and is Female; ABD PAIN TECHNIQUE: Axial computed tomography images of the abdomen and pelvis without intravenous contrast. Sagittal and coronal reformatted images were created and reviewed. This CT exam was performed usi ng one or more of the following dose reduction techniques: automated exposure control, adjustment o f the mA and/or kV according to patient size, and/or use of iterative reconstruction technique. COMPARISON: No relevant prior studies available. FINDINGS: LUNG BASES: Unremarkable. No mass. No consolidation. ABDOMEN: LIVER: Homogeneous without focal mass. GALLBLADDER AND BILE DUCTS: The gallbladder is minimally distended. PANCREAS: The pancreas is atrophic. No ductal dilation. SPLEEN: Unremarkable. ADRENALS: Unremarkable. No mass. KIDNEYS AND URETERS: A right nephrostomy tube is in place. Mild right hydroureteronephrosis is p resent. The left kidney is grossly unremarkable. STOMACH AND BOWEL: The stomach is distended with fluid and air. Mucosal thickening involving the distal gastric body is present. The small bowel is relatively normal in caliber. A moderate amount s tool is present throughout the colon. There is no bowel obstruction. PELVIS: APPENDIX: No findings to suggest acute appendicitis. BLADDER: Unremarkable. No stones. REPRODUCTIVE: The uterus is surgically absent. ABDOMEN and PELVIS: INTRAPERITONEAL SPACE: Intraperitoneal free air is noted within the upper abdomen. Trace free fluid is present within the pelvis. BONES/JOINTS: The bones are diffusely osteopenic. SOFT TISSUES: The soft tissues are normal. VASCULATURE: Atherosclerosis of the vasculature is present. No abdominal aortic aneurysm. LYMPH NODES: Unremarkable. No enlarged lymph nodes. OTHER FINDINGS: Partially calcified right pelvic sidewall mass is present. This measures approxi mately 5.2 x 3.7 cm. IMPRESSION: 1. Intraperitoneal free air within the upper abdomen. Findings are suggestive of hollo w viscus perforation, possibly originating from the distal gastric body. 2. Mild right hydroureteronephrosis is present, likely secondary to obstruction from the soft tissu e density with central calcification along the right pelvic sidewall. This likely correlates to patie nt's history of known malignancy. 3. Right nephrostomy tube in place. Electronically signed by: Dolores Madsen MD 11/05/2020 6:08 AM PROJECT SURVEYOR Due to temporary technical issues with the PACS/Fluency reporting system, reports are being signed by the in house radiologist without review as a courtesy to ensure prompt reporting. The interpreting r adiologist is fully responsible for the content of the report.
--- NOTE | 2020-11-05 10:53 | CON ---
Date of Consultation: 11/05/2020 Reason For Service: Pneumoperitoneum. History Of Present Illness: This is a case of a 70-year-old patient with multiple medical problems i ncluding metastatic cancer, on chemotherapy, who came this morning with abdominal pain that started a bout 3 hours ago. She does not remember having this pain before. When she came into the ER, workup revealed the patient has pneumoperitoneum and they believe may be coming from the stomach. She is e patient at [facility]. The ER contacted [facility] and accepted the patient for transfer. The E R physician asked me to just come and take a look at her to make sure she is stable for transfer. Sh husam is cooperative. She is communicative. She takes normally pain medication due to her conditions, a lthough she believes she was okay last night. She is currently under chemotherapy treatment for uter ine cancer. She has a nephrostomy tube due to the mass in the lower pelvis since the mass had enlarg ed, probably this is causing blockage of the kidneys. She obviously preferred to be back to her surg eons in [facility] stating she has history of ovarian cancer and even brain tumor in the past. Allergies: INCLUDE SULFA. Medications: Gabapentin; Keppra; chemotherapy, although unknown names; aspirin, folic acid. Past Medical History: As above, celiac disease, ovarian cancer, spine tumor, brain tumor, kidney obs truction. Past Surgical History: She claims she had lower pelvic surgery, she cannot tell specifically the det ails and also she has a nephrostomy tube. Social History: She does not smoke. She does not drink alcohol. Review of Systems: See H and P, shows abdominal pain. Physical Examination: General: The patient is awake, alert, cooperative, oriented x3. HEENT: Pupils equal and reactive. The patient currently has alopecia. Chest: Clear. Abdomen: Rigid, still compressible, but has voluntary guarding. Extremities: Good capillary refill. Rectal: Deferred. Laboratory Data: Blood work shows WBC count of 9. CAT scan of the abdomen and pelvis shows pneumope ritoneum in the upper abdomen, most likely distal stomach. Assessment: A 70-year-old patient who comes to us with peritonitis and also comes to us with a CAT s can suggesting pneumoperitoneum with possible etiology on the stomach. I explained to her that this is an approximation and may be coming from any part of the of intestines including the stomach. She understands the emergency. Understands also her comorbidities with current chemotherapy is still met astatic cancer and so she prefers to be in [facility]. Dr. Valdivia a few minutes ago talked to [facility] and they have set the patient for transfer. I explained to her as long as she remains clini delfina stable, which right now she has vital signs stable, then she may have her options. If she beco mes unstable unfortunately, we might have to do the emergent surgery in this institution. So, as candsi g as right now the conditions remain the same, then . She understands options of emergent laparotomy, possible resection, possible ostomy with benefits, alternatives, and risks including, but not limited to infection, bleeding, damage to adjacent structures, anesthesia complication, [place], and even . HERMAN/MODL Voice ID: [id number] Report ID: [id number]
--- NOTE | 2020-11-07 07:58 | EKG ---
Test Date: 2020-11-05 Test Time: 04:50:41 Nutritionist Public [employer]: MG MEASUREMENT RESULTS: Intervals: Rate: 88 LA: 130 QRSD: 70 QT: 346 QTc: 418 [place]: P: 81 LA: 130 QRS: 83 T: 70 INTERPRETIVE STATEMENTS: Normal sinus rhythm Normal ECG No previous ECG available for comparison Electronically Signed On 11-07-20 07:53:41 REGISTERED NURSES by Eitan Marquez
== END 2020-11-05 07:34 ==
LOC: ER 04:21
DX: C55 Malignant neoplasm of uterus, part unspecified (principal); K66.8 Other specified disorders of peritoneum; E87.6 Hypokalemia; N39.0 Urinary tract infection, site not specified; N13.30 Unspecified hydronephrosis; K25.1 Acute gastric ulcer with perforation; D64.9 Anemia, unspecified; Z20.822 Contact with and (suspected) exposure to COVID-19; Z85.43 Personal history of malignant neoplasm of ovary; Z79.82 Long term (current) use of aspirin; Z88.2 Allergy status to sulfonamides; Z91.011 Allergy to milk products; Z91.018 Allergy to other foods
CPT/HCPCS: 93005; 87088; 85025; 87086; 80048; 36415; 83735; 85610; 80076; 83605; 87077; 87186; 81003; 84484; 83690; 83880; 74176; 71045; 99285; U0003; C9113; J2543; J1170; J7030; J2405; J3480; J7799